=== PATIENT | female | born 1975 | race Two or more races ===

== ENCOUNTER 2021-12-19 06:38 | Outpatient (CLI) | payer OTHER | END 2021-12-19 06:43 | disposition home or self-care (01) | LOC: LAB 06:38 | PROVIDERS: ATTEND Orthopaedic Surgery | DX: D64.9 Anemia, unspecified (principal); E88.9 Metabolic disorder, unspecified; D68.8 Other specified coagulation defects; N39.0 Urinary tract infection, site not specified; A49.02 Methicillin resistant Staphylococcus aureus infection, unspecified site; E11.9 Type 2 diabetes mellitus without complications; I10 Essential (primary) hypertension; I49.9 Cardiac arrhythmia, unspecified ==

== ENCOUNTER 2021-12-19 07:59 | Outpatient (CLI) | payer OTHER | END 2021-12-19 08:03 | disposition home or self-care (01) | LOC: RAD 07:59 | PROVIDERS: ATTEND Orthopaedic Surgery | DX: Z76.89 Persons encountering health services in other specified circumstances (principal) ==